=== PATIENT | male | born 1955 ===

== ENCOUNTER 2025-02-24 19:18 | Emergency (ER) | payer OTHER, MEDICARE ==
[~2025-02-24] VITALS: Ht 185.4 cm; Wt 83.9 kg
[2025-02-24] MEDS ORDERED: Trimethoprim/Sulfamethoxazole DS Tab PO ONE (23:20)
[2025-02-24] MEDS ORDERED: RX Prepack 2 Tabs Ondansetron ODT 4MG UD ONE (23:35)
[2025-02-24] MEDS ORDERED: SULTRIDS PO (23:35)
[2025-02-24] MEDS ORDERED: RX Prepack 6 Tabs Oxycodone 5mg UD ONE (23:35)
== END 2025-02-24 23:44 | disposition home or self-care (01) ==
LOC: ER 19:18
DX: S52.022A Displaced fracture of olecranon process without intraarticular extension of left ulna, initial encounter for closed fracture (principal); V19.9XXA Pedal cyclist (driver) (passenger) injured in unspecified traffic accident, initial encounter; Z23 Encounter for immunization; Z88.8 Allergy status to other drugs, medicaments and biological substances
CPT/HCPCS: 12002; 73070; 90471; 90715; 99283-25; A9270